=== PATIENT | female | born 1995 | race Asian ===

== ENCOUNTER 2018-03-17 23:44 | Emergency (ER) | payer MEDICAID, OTHER ==
[~2018-03-17] VITALS: Ht 177.8 cm; Wt 114.8 kg
[~2018-03-17 23:44] MED LIST: ESTR-40 PO
[2018-03-18 00:41] LABS: CLARITY,URINE CLEAR (Clear); COLOR,URINE YELLOW (Yellow); GLUCOSE, URINE NEGATIVE (Neg); KETONES,URINE TRACE mg/dl (Neg); LEUKOCYTE ESTERASE ,URINE NEGATIVE (Neg); NITRITES, URINE NEGATIVE (Neg); OCCULT BLOOD,URINE LARGE (Neg); PH,URINE 5.5 (4.8-8.0); PROTEIN,URINE NEGATIVE (Neg); UROBILINOGEN,URINE 0.2 E.U/dL (0.2-1.0)
[2018-03-18 00:42] LABS: UA COLLECTION TYPE CLN CATCH MIDSTREAM
[2018-03-18 00:44] LABS: URINE HCG NEGATIVE (NEG)
[2018-03-18 00:49] LABS: BACTERIA,URINE FEW /HPF (Neg); MUCUS STRANDS MODERATE /LPF (Neg); SQUAMOUS EPITHELIAL CELL,UR MODERATE /LPF (FEW); WBC,URINE NONE SEEN /HPF (0-4)
[2018-03-18 00:53] LABS: BASOPHILS % (AUTO) 0.5 % (0-1); EOSINOPHILS # (AUTO) 0.2 X10'3 (0-0.9); EOSINOPHILS % (AUTO) 2.7 % (0-6); LYMPHOCYTES % (AUTO) 43.3 % (21-51); MEAN CORPUSCULAR HEMOGLOBIN 15.7 PG (27.0-31.0); MEAN CORPUSCULAR HGB CONC 29.5 % (33.0-36.5); MEAN CORPUSCULAR VOLUME 53.3 FL (78-98); MEAN PLATELET VOLUME 7.5 FL (7.4-10.4); MONOCYTES # (AUTO) 0.4 X10'3 (0-0.9); MONOCYTES % (AUTO) 5.3 % (2-12); NEUTROPHILS # (AUTO) 3.3 X10'3 (1.8-7.7); NEUTROPHILS % (AUTO) 48.2 % (42-75); PLATELET COUNT 262 X10'3 (140-440); RED BLOOD COUNT 3.98 X10'6 (4.20-5.60); RED CELL DISTRIBUTION WIDTH 20.1 % (11.5-14.5); WHITE BLOOD COUNT 6.9 X10'3 (4.5-11.0)
[2018-03-18 00:56] LABS: HEMATOCRIT 21.2 % (35.0-45.0); HEMOGLOBIN 6.3 g/dl (12.0-16.0); PROTHROMBIN TIME 10.6 SECONDS (9.0-12.0)
[2018-03-18 00:57] LABS: ALANINE AMINOTRANSFERASE 16 U/L (12-78); ALBUMIN 3.4 G/DL (3.4-5.0); ALBUMIN/GLOBULIN RATIO 0.7 (1.1-1.5); ALKALINE PHOSPHATASE 76 IU/L (46-116); ANION GAP 8 (8-16); ASPARTATE AMINO TRANSFERASE 12 U/L (10-37); BILIRUBIN,TOTAL 0.4 MG/DL (0.1-1.0); BLOOD UREA NITROGEN 13 MG/DL (7-18); BUN/CREATININE RATIO 16.9 (6.6-38.0); CALCIUM 8.8 MG/DL (8.5-10.1); CHLORIDE 103 MMOL/L (99-107); CREATININE 0.77 MG/DL (0.40-0.90); GLUCOSE 89 MG/DL (70-104); POTASSIUM 3.5 MMOL/L (3.5-5.1); SODIUM 138 MMOL/L (135-145); TOTAL PROTEIN 8.3 G/DL (6.4-8.2); eGFR > 90 ML/MIN
[2018-03-18 01:18] VITALS: BP 115/75
[2018-03-18 02:26] LABS: PLATELET ESTIMATE NORMAL
[2018-03-18 02:27] LABS: ANISOCYTOSIS 2+; HYPOCHROMASIA 2+; MICROCYTOSIS 3+
== END 2018-03-18 01:31 | disposition short-term general hospital (02) ==
LOC: ER 23:45
DX: D64.9 Anemia, unspecified (principal); N93.9 Abnormal uterine and vaginal bleeding, unspecified
CPT/HCPCS: 36415; 80053; 81001; 81025; 85025; 85610; 99285

== ENCOUNTER 2018-07-21 08:09 | Emergency (ER) | payer OTHER ==
[~2018-07-21] VITALS: Ht 177.8 cm; Wt 120.7 kg
[2018-07-21] MEDS ORDERED: ketorolac trometh inj. 60 MG/2 ML VIAL IM ONE (08:55)
[2018-07-21] MEDS ORDERED: morphine IR (immed. release) 30mg tablet PO ONE (08:55)
[2018-07-21] MEDS ORDERED: ondansetron 4mg rapidly disintigrating tab PO ONE (08:55)
[2018-07-21 09:07] LABS: CLARITY,URINE CLOUDY (Clear); COLOR,URINE YELLOW (Yellow); GLUCOSE, URINE NEGATIVE (Neg); KETONES,URINE NEGATIVE (Neg); LEUKOCYTE ESTERASE ,URINE SMALL (Neg); NITRITES, URINE POSITIVE (Neg); OCCULT BLOOD,URINE LARGE (Neg); PROTEIN,URINE NEGATIVE (Neg); UROBILINOGEN,URINE 0.2 E.U/dL (0.2-1.0)
--- NOTE | 2018-07-21 09:11 | NUR ---
IN TO MEDICATE PT AND SHE IS APPEARES TO BE SLEEPING WITH SNORRING RESP.
--- NOTE | 2018-07-21 09:11 | NUR ---
MORPHINE HELD AT THIS TIME D/T PT SLEEPING
[2018-07-21 09:12] LABS: BASOPHILS % (AUTO) 0.3 % (0-1); EOSINOPHILS # (AUTO) 0.1 X10'3 (0-0.9); EOSINOPHILS % (AUTO) 0.3 % (0-6); HEMOGLOBIN 9.3 g/dl (12.0-16.0); LYMPHOCYTES # (AUTO) 0.6 X10'3 (1.1-4.8); LYMPHOCYTES % (AUTO) 3.8 % (21-51); MEAN CORPUSCULAR HEMOGLOBIN 17.1 PG (27.0-31.0); MEAN CORPUSCULAR HGB CONC 29.9 g/dL (33.0-36.5); MEAN CORPUSCULAR VOLUME 57.2 FL (78-98); MEAN PLATELET VOLUME 8.3 FL (7.4-10.4); MONOCYTES % (AUTO) 6.3 % (2-12); NEUTROPHILS # (AUTO) 13.8 X10'3 (1.8-7.7); NEUTROPHILS % (AUTO) 89.3 % (42-75); PLATELET COUNT 318 X10'3 (140-440); RED BLOOD COUNT 5.42 X10'6 (4.20-5.60); RED CELL DISTRIBUTION WIDTH 20.4 % (11.5-14.5); WHITE BLOOD COUNT 15.5 X10'3 (4.5-11.0)
[2018-07-21 09:16] LABS: UA COLLECTION TYPE CLN CATCH MIDSTREAM
[2018-07-21 09:18] LABS: SQUAMOUS EPITHELIAL CELL,UR MODERATE /LPF (FEW)
[2018-07-21 09:19] LABS: BACTERIA,URINE 3+ /HPF (Neg); WBC CLUMPS,URINE FEW /HPF (NEGATIVE); WBC,URINE 50-100 /HPF (0-4)
[2018-07-21 09:21] LABS: ALANINE AMINOTRANSFERASE 26 U/L (12-78); ALBUMIN 3.2 G/DL (3.4-5.0); ALBUMIN/GLOBULIN RATIO 0.6 (1.1-1.5); ALKALINE PHOSPHATASE 76 IU/L (46-116); ANION GAP 8 (8-16); ASPARTATE AMINO TRANSFERASE 21 U/L (10-37); BILIRUBIN,TOTAL 0.5 MG/DL (0.1-1.0); BLOOD UREA NITROGEN 16 MG/DL (7-18); BUN/CREATININE RATIO 18.4 (6.6-38.0); CALCIUM 8.9 MG/DL (8.5-10.1); CHLORIDE 103 MMOL/L (99-107); CREATININE 0.87 MG/DL (0.40-0.90); GLUCOSE 98 MG/DL (70-104); LIPASE 88 U/L (73-393); POTASSIUM 3.8 MMOL/L (3.5-5.1); SODIUM 136 MMOL/L (135-145); TOTAL CARBON DIOXIDE 24.8 MMOL/L (24-32); TOTAL PROTEIN 8.3 G/DL (6.4-8.2); eGFR 81 ML/MIN
[2018-07-21 09:22] LABS: URINE HCG NEGATIVE (NEG)
[2018-07-21 09:23] LABS: INR 1.1 INR; PROTHROMBIN TIME 10.7 SECONDS (9.0-12.0)
[2018-07-21] MEDS ORDERED: CefTRIAXone 1000mg IM Kit (w/lidocaine diluent) IM ONE (09:35)
[2018-07-21 09:36] VITALS: BP 121/55
[2018-07-21 09:42] LABS: ANISOCYTOSIS 3+; MICROCYTOSIS 3+; PLATELET ESTIMATE NORMAL; TOTAL CELLS COUNTED 100
--- NOTE | 2018-07-21 09:45 | NUR ---
PT GIVEN TORADOL AND ZOFRAN. PT DRIFTS BACK TO SLEEP WHILE ANSWERING QUESTIONS. CONTINUING TO HOLD MORPHINE
[2018-07-21] MEDS ORDERED: CIPR-230 PO (10:34)
[2018-07-21] MEDS ORDERED: ciprofloxacin 250mg tablet PO ONE (10:40)
== END 2018-07-21 11:02 | disposition home or self-care (01) ==
LOC: ER 08:10
DX: N39.0 Urinary tract infection, site not specified (principal); Z79.899 Other long term (current) drug therapy
CPT/HCPCS: 36415; 74176; 80053; 81001; 81025; 83690; 85025; 85610; 87088; 87186; 96372; 99284; J0696; J1885; 87077

== ENCOUNTER 2024-08-14 19:08 | Emergency (ER) | payer MEDICAID ==
[~2024-08-14] VITALS: Ht 175.3 cm; Wt 138.8 kg
[2024-08-14] MEDS: dexamethasone sod phosphate 10mg/ml inj IV STA (19:49)
[2024-08-14] MEDS: ketorolac trometh 30MG/ML vial 30 MG/ML VIAL IV ONE (19:50)
[2024-08-14] MEDS: normal saline 1000ml 1,000 ML IV ONE (19:50)
[2024-08-14] MEDS ORDERED: PROM25TA14 PO (21:03)
[2024-08-14] MEDS ORDERED: ACET1TAB96 PO (21:03)
[2024-08-14] MEDS ORDERED: PRED20TA PO (21:03)
[2024-08-14] MEDS ORDERED: ALBU8HFA INH (21:03)
[2024-08-14 21:32] VITALS: BP 120/70; PULSE 96; RESP 20; TEMP 98.9; O2SAT 98
== END 2024-08-14 21:34 | disposition home or self-care (01) ==
LOC: ER 19:09
DX: B34.9 Viral infection, unspecified (principal); M79.10 Myalgia, unspecified site; Z20.822 Contact with and (suspected) exposure to COVID-19
CPT/HCPCS: 36415; 71045; 87811; 96361; 96374; 96375; 99284; J1100; J1885; J7030